=== PATIENT | female | born 1970 | race Caucasian/White ===

== ENCOUNTER 2020-03-14 20:41 | Emergency (ER) | payer OTHER, SELFPAY ==
[2020-03-14 20:42] VITALS: BP 139/83; PULSE 110; RESP 10; TEMP 36.6; O2SAT 100; BMI 32.8
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
[2020-03-14] MEDS: 0.9% Normal Saline 1,000 ML 1000 ML IV (21:20)
[2020-03-14 21:25] LABS: Absolute Lymphocyte Count 3.13 X10^3/uL (0.83-4.51); Absolute Neutrophil Count 6.1 X10^3/uL (2.0-7.7); Basophil# 0.03 X10^3/uL; Basophil% 0.3 % (0-1); Eosinophil# 0.04 X10^3/uL; Eosinophils% 0.4 % (0-5); Hematocrit 41.5 % (37-47); Hemoglobin 13.4 g/dL (12.0-15.0); Lymphocyte # 3.13 X10^3/ul (4.0); Lymphocyte % 31.6 % (19-41); Mean Corp Hgb Conc 32.3 g/dL (32-36); Mean Corpuscular Volume 86.8 fL (81-99); Mean Platelet Vol. 8.9 fl (6.2-12.0); Monocyte# 0.56 X10^3/uL; Monocyte% 5.7 % (0-10); NRBC Flagged by Analyzer 0 % (0-5); Neutrophil # 6.11 X10^3/uL (2.7-7.7); Neutrophil % 61.7 % (47-70); Platelet Count 370 K/mm3 (150-450); RBC Distribution Width CV 13.4 % (11.6-14.6); RBC Distribution Width SD 42.8 fl (35.1-43.9); Red Blood Count 4.78 M/mm3 (4.2-5.4); White Blood Count 9.9 K/mm3 (4.4-11.0)
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
[2020-03-14 21:50] LABS: ALB/GLOB Ratio 0.9 RATIO (0.9-2.4); AST(SGOT) 17 U/L (15-37); Alanine Aminotransfer ALT/SGPT 23 U/L (13-56); Albumin, Serum 3.9 g/dL (3.2-5.0); Alkaline Phosphatase 61 U/L (45-117); Anion Gap 6 (5-15); BUN 11 mg/dL (7-18); BUN/Creat Ratio 13.7 RATIO (10-20); Calcium,Total 9.1 mg/dL (8.5-10.1); Chloride 105 mmol/L (98-107); EST Glomerular Filtration Rate 81 mL/min (>60); Est Glom Filt Rate - Afr Amer 98 mL/min (>60); Estimated Creatinine Clearance 71.91 ml/min; Globulin 4.5 g/dL (2.2-4.2); Glucose 108 mg/dL (74-106); Potassium 3.3 mmol/L (3.5-5.1); Protein, Total 8.4 g/dL (6.4-8.2); Sodium Level 138 mmol/L (136-145)
[2020-03-14 22:10] LABS: Alcohol, Blood (Medical)-Serum < 3.0 mg/dL
[2020-03-14 22:21] VITALS: BP 139/83; PULSE 87; RESP 16
[2020-03-14 22:30] LABS: Bacteria 0 SEEN /hpf (None Seen); Mucous, Urine 0 SEEN /hpf (<or=2+); White Blood Cells 0 SEEN /hpf (0-5)
[2020-03-14 22:31] LABS: Color, Urine Yellow (Yellow); Glucose, Dipstick Normal (Normal); Ketone-Dipstick Negative (Negative); Leukocyte Esterase-Dipstick Negative /ul (Negative); Nitrite-Dipstick Negative (Negative); Occult Blood-Urine 25 /ul (Negative); Protein-Dipstick Negative (Negative); Specific Gravity, Urine 1.025 (1.002-1.030); Urine Bilirubin Dipstick Negative (Negative); Urine Clarity Sl. Cloudy (Clear); Urine Urobilinogen Normal (Normal)
[2020-03-14 22:40] LABS: Amorphous Sediment 1+ URATE; Internal QC Validated? YES +Cl - CLEAR BKGD; Pregnancy, Urine Negative Negative; Red Blood Cells-Urine 0-5 SEEN /hpf (0-5); Squamous Epithelial Cells - UA 5-10 SEEN /hpf (5-10)
[2020-03-14 22:45] LABS: Amphetamine Urine VISTA NEGATIVE (<1000 ng/mL); Barbiturate Urine VISTA NEGATIVE (< 200 ng/mL); Benzodiazepine Urine VISTA POSITIVE (< 200 ng/mL); Cocaine Urine VISTA NEGATIVE (< 300 ng/mL); Ecstacy Urine VISTA POSITIVE (< 500 ng/mL); Methadone Urine VISTA NEGATIVE (< 300 ng/mL); PCP Urine VISTA NEGATIVE (< 25 ng/mL); THC Urine VISTA NEGATIVE (< 50 ng/mL); Vista UDS pH Range 6
[2020-03-14 23:00] VITALS: BP 131/82; PULSE 74; RESP 16; O2SAT 98
[2020-03-14 23:59] VITALS: BP 116/76; PULSE 86; RESP 16
[2020-03-15 01:05] VITALS: BP 118/91; PULSE 94; RESP 18; O2SAT 95
== END 2020-03-15 01:05 | disposition home or self-care (01) ==
PROVIDERS: Emergency Provider Emergency Medicine
DX: Z04.1 Encounter for examination and observation following transport accident (principal); V46.0XXA Car driver injured in collision with other nonmotor vehicle in nontraffic accident, initial encounter; Y93.I9 Activity, other involving external motion; Y92.411 Interstate highway as the place of occurrence of the external cause; Y99.8 Other external cause status
CPT/HCPCS: 70450; 71045; 80053; 80307; 80320; 81001; 81025; 84484; 85025; 93005; 96360; 99283; 99285; A4216; G0480

== ENCOUNTER 2021-09-06 17:04 | Inpatient (IN) | payer OTHER, SELFPAY ==
[2021-09-06 17:05] VITALS: BP 114/77; PULSE 67; RESP 18; TEMP 36.8; O2SAT 97; BMI 33.3
--- NOTE | 2021-09-06 17:32 | HP.PCM.HOS_ITS ---
HPI - General HPI Narrative MÓNICA YUSUF, is a 50 F with a PMh as outlined who presents via the ED on 09/06/2021 for opiate withdrawal. She used to be on benzodiazepines as prescribed by a pscychiatrist and was weaned off ~ 2 years ago. She started taking benzodiazepines again a few months ago and says she purchases it off the street s. She also uses percocets nad IV heroin that she buys off the street. her last use was on the morning of admission. On admission, vitals were blood pressure of 114/77, pulse rate of 67 and respira tory rate of 18. Temperature was 98.2 Fahrenheit and she was saturating 97% on room air. Labs were pending at time of review. She has been admitted to manage for acute opiate and benzodiazepine withdrawal. [facility] Medical History Anxiety Depression PTSD (post-traumatic stress disorder) Home Medications trazodone 300 - 400 mg PO QHS PRN 09/06/21 [History Last Taken Unknown] Allergy/AdvReac Type Severity Reaction Status Date / Time No Known Allergies Allergy Verified 09/06/21 17:04 Surgical History History of kidney surgery Social History Smoking Status: Never smoker ROS Constitutional Constitutional: Denies anorexia, fatigue, fever(s), malaise or weakness Eyes Eyes: Denies change in vision ENT HEENT: Denies dysphagia or headache(s) Cardiovascular Cardiovascular: Denies chest pain, dyspnea on exertion, edema, lightheadedness, orthopnea or palpitations Respiratory/Chest Respiratory/Chest: Denies cough, dyspnea, productive cough, shortness of breath at rest, shortness of breath with exertion or wheezing Gastrointestinal Gastrointestinal: Denies abdominal pain, diarrhea, dyspepsia, hematemesis, nausea or vomiting Genitourinary Genitourinary: Denies dysuria Musculoskeletal Musculoskeletal: Denies arthralgias Neurologic Neurologic: Denies confusion, dizziness, focal weakness, headache(s) or seizure- like activity Psychiatric Psychiatric: Denies anxiety or depression Hematologic/Lymphatic Hematologic/Lymphatic: Denies anemia Vital Signs Vital Signs Vital Signs: 09/06/21 17:05 Temperature 98.2 F Temperature Source Temporal Pulse Rate 67 Respiratory Rate 18 Blood Pressure 114/77 Blood Pressure Mean 89 Pulse Ox 97 Oxygen Delivery Method Room Air Weight Weight: 187 lb 13.341 oz Body Mass Index (BMI) 33.3 Physical Exam Const alert and oriented x3 General Appearance: cooperative HEENT normocephalic, head/scalp atraumatic and hearing grossly normal bilaterally Eyes PERRL, EOMs intact bilaterally and conjunctivae normal Neck no lymphadenopathy, supple and no JVD Resp normal respiratory effort, no retractions, no use of accessory muscles and clear to auscultation bilaterally Cardio regular rate, regular rhythm, S1 normal heart sound, S2 normal heart sound and no murmurs GI normal to inspection, nondistended, normoactive bowel sounds, soft to palpation, non-tender and non-distended Extremity normal to inspection, full ROM and no clubbing, cyanosis or edema Peripheral Pulses: Yes pulses 2+ throughout Skin no rashes or lesions noted Neuro oriented x3, CN's II-XII intact bilaterally and moves all extremities Sensorium / Orientation: awake and alert Psych affect normal Results Lab / Micro Data Result Diagrams: 09/06/21 17:43 09/06/21 17:43 Assessment & Plan Assessment/Plan (1) Opioid withdrawal: (2) Benzodiazepine withdrawal: PLAN: #Acute opioid withdrawal * admit to med surg * urine tox pending * start on opioiod withdrawal protocol with buprenorphine * adjunctive meds for symptomatic relief * #Benzodiazepine withdrawal * start on benzodiazepine withdrawal with ativan * adjunctive meds for symptomatic relief * will need follow up at Outpatient detox rehab facility for continuous tapering of benzodiazepine * DVT prophylaxis: low ris. Encourage ambulation Charges/Coding Visit Charges Inpatient E&M: 22858 Init Hosp L3
--- NOTE | 2021-09-06 17:41 | EDS_ITS ---
HPI History of Present Illness Chief Complaint: Substance Abuse Narrative Narrative: Patient presents for detox from opiates and benzodiazepines. She states she is to see a psychiatrist and take 1 mg of Xanax 4 times a day. 2-1/2 years ago she went through rehab in [place] and got off all medications. She states that for the past few months she has been taking daily Xanax that she gets off the streets. Additionally she will take opiate medication. She states when she tries to stop taking them she gets sick with nausea and vomiting and does not feel well. She last used Xanax/benzodiazepines and opiates this morning. She denies any nausea or vomiting currently. She has had uterine ablation previously and does not have menstrual periods. She denies any suicidal ideation. She presents for detox from these substances. [facility] Medical History (Updated 09/06/21 @ 19:36 by Lin Alex) Anxiety Depression PTSD (post-traumatic stress disorder) Substance abuse Home Medications trazodone 300 - 400 mg PO QHS PRN 09/06/21 [History Last Taken Unknown] Allergy/AdvReac Type Severity Reaction Status Date / Time No Known Allergies Allergy Verified 09/06/21 17:04 Surgical History History of kidney surgery Social History Smoking Status: Never smoker ROS ROS ED ROS Narrative Constitutional: No fever, no chills. HEENT: No sore throat. No neck pain. No loss of vision. No rhinorrhea. Cardiovascular: No chest pain. No palpitations. No pedal edema. Respiratory: No cough, no shortness of breath. Abdominal: No abdominal pain. No nausea or vomiting currently. Genitourinary: No dysuria. No hematuria. Musculoskeletal: No myalgias. No arthralgias. Neurologic: No headaches. No dizziness. No lightheadedness. Skin: No rash. No change in color. Psychiatric: No depression. Mild anxiety. No suicidal ideation. EXAM Physical Exam Narrative Exam Narrative: Afebrile. Vital signs noted. HEENT: Normocephalic. Atraumatic. PERRL, EOMI. Neck soft and supple. No point tenderness or step off. Cardiovascular: Regular rate and rhythm. No murmurs, rubs, or gallops appreciated. Respiratory: No tachypnea. Lungs clear to auscultation bilaterally. Gastrointestinal: Abdomen soft, nontender, with normoactive bowel sounds. No rebound or guarding. Neurological: Awake. Alert. Nonfocal, nonlateralizing. No active signs of withdrawal. Skin: No rash. Normal color. No pallor. Musculoskeletal: No pedal edema. Full range of motion extremities. Const Vital Signs: 09/06/21 17:05 Temperature 98.2 F Temperature Source Temporal Pulse Rate 67 Respiratory Rate 18 Blood Pressure 114/77 Blood Pressure Mean 89 Pulse Ox 97 Oxygen Delivery Method Room Air MDM MDM MDM Narrative Medical decision making narrative: Medical screening labs were obtained. I did obtain a serum , but she has had a uterine ablation in the past. I discussed patient with Dr. Cantu for admission to [facility]. She will be admitted in stable condition. Discharge Plan Dx/Rx/DC Orders Clinical Impression: Opioid withdrawal, Benzodiazepine withdrawal, Desire for detoxification Disposition Disposition: Acute Care Hospital [facility] Discharge Date/Time: 09/06/21 18:34
[2021-09-06 17:50] LABS: Absolute Lymphocyte Count 3.46 X10^3/uL (0.83-4.51); Absolute Neutrophil Count 5.8 X10^3/uL (2.0-7.7); Basophil# 0.02 X10^3/uL; Basophil% 0.2 % (0-1); Eosinophil# 0.13 X10^3/uL; Eosinophils% 1.3 % (0-5); Hematocrit 40.3 % (37-47); Hemoglobin 13.1 g/dL (12.0-15.0); Lymphocyte # 3.46 X10^3/ul (0.83-4.51); Lymphocyte % 34.4 % (19-41); Mean Corp Hgb Conc 32.5 g/dL (32-36); Mean Corpuscular Hgb 29.3 pg (27.0-32.0); Mean Corpuscular Volume 90.2 fL (81-99); Mean Platelet Vol. 9.2 fl (6.2-12.0); Monocyte# 0.66 X10^3/uL; Monocyte% 6.6 % (0-10); NRBC Flagged by Analyzer 0 % (0-5); Neutrophil # 5.76 X10^3/uL (2.7-7.7); Neutrophil % 57.1 % (47-70); Platelet Count 305 K/mm3 (150-450); RBC Distribution Width CV 13.2 % (11.6-14.6); RBC Distribution Width SD 43.5 fl (35.1-43.9); Red Blood Count 4.47 M/mm3 (4.2-5.4); White Blood Count 10.1 K/mm3 (4.4-11.0)
[2021-09-06 18:04] LABS: Anion Gap 3 (5-15); BUN 10 mg/dL (7-18); BUN/Creat Ratio 13.4 RATIO (10-20); Calcium,Total 9.1 mg/dL (8.5-10.1); Chloride 107 mmol/L (98-107); Creatinine, Serum 0.75 mg/dL (0.55-1.02); EST Glomerular Filtration Rate 88 mL/min (>60); Est Glom Filt Rate - Afr Amer 106 mL/min (>60); Estimated Creatinine Clearance 75.88 ml/min; Glucose 87 mg/dL (74-106); Potassium 3.9 mmol/L (3.5-5.1); Sodium Level 141 mmol/L (136-145)
[2021-09-06 18:08] LABS: Internal QC Validated? YES +Cl - CLEAR BKGD; Pregnancy, Serum, hCG Quali. NEGATIVE Negative
[2021-09-06 18:24] LABS: Alcohol, Blood (Medical)-Serum < 3.0 mg/dL
[2021-09-06 18:25] VITALS: BP 122/80; PULSE 70; RESP 17; TEMP 36.7; O2SAT 97
--- NOTE | 2021-09-06 18:29 | CM.ED ---
Social Work Telephone call to treatment navigatorLatrice updated on patient admission to [facility]. Bhakti RIOS, ROXANNE-Rohan
[2021-09-06 18:30] VITALS: BP 116/66; PULSE 69; RESP 16; TEMP 37.2; O2SAT 99
[2021-09-06 18:34] VITALS: BMI 31.8
[2021-09-06] MEDS: Phenobarbital 32.4 MG Tablet 64.8 MG PO ×2 (18:56→22:41)
[2021-09-06 19:08] LABS: Amphetamine Urine VISTA NEGATIVE (<1000 ng/mL); Barbiturate Urine VISTA NEGATIVE (< 200 ng/mL); Benzodiazepine Urine VISTA NEGATIVE (< 200 ng/mL); Cocaine Urine VISTA NEGATIVE (< 300 ng/mL); Ecstacy Urine VISTA POSITIVE (< 500 ng/mL); Methadone Urine VISTA NEGATIVE (< 300 ng/mL); PCP Urine VISTA NEGATIVE (< 25 ng/mL); THC Urine VISTA NEGATIVE (< 50 ng/mL); Vista UDS pH Range 7
[2021-09-06 22:30] VITALS: BP 117/67; PULSE 78; RESP 16; TEMP 36.5; O2SAT 96
[2021-09-06] MEDS: traZODone 100 MG Tablet PO (22:42)
[2021-09-06] MEDS: Dicyclomine 10 MG Capsule 20 MG PO (22:42)
[2021-09-07] MEDS: Phenobarbital 32.4 MG Tablet 64.8 MG PO ×6 (02:48→22:42)
[2021-09-07 03:06] VITALS: BP 105/75; PULSE 75; RESP 16; TEMP 36.6; O2SAT 95
[2021-09-07] MEDS: Dicyclomine 10 MG Capsule 20 MG PO ×2 (06:10→19:52)
[2021-09-07] MEDS: cloNIDine HCl 0.1 MG Tablet PO ×2 (06:10→14:51)
[2021-09-07] MEDS: Thiamine Hydrochloride 100 MG Tablet PO (08:26)
[2021-09-07] MEDS: Folic Acid 1 MG Tablet PO (08:26)
[2021-09-07 09:00] VITALS: BP 101/64; PULSE 79; RESP 16; TEMP 36.6; O2SAT 96
--- NOTE | 2021-09-07 09:34 | PN.HOSP_ITS ---
Subjective Subjective Patient seen in the clinic. She complained of tremors in her legs and says she was not able to sleep. She however had no other complaints. Review of systems otherwise negative. Objective Data Objective Data Vital Signs: Vital Signs Temp Pulse Resp BP Pulse Ox 97.9 F 79 16 101/64 96 09/07/21 09:00 09/07/21 09:00 09/07/21 09:00 09/07/21 09:00 09/07/21 09:00 Oxygen Delivery Method Room Air Weight: 180 lb Body Mass Index (BMI) 31.8 Lab / Micro Data Result Diagrams: 09/06/21 17:43 09/06/21 17:43 Labs: Laboratory Results - last 24 hr 09/06/21 17:43: WBC 10.1, RBC 4.47, Hgb 13.1, Hct 40.3, MCV 90.2, MCH 29.3, MCHC 32.5, RDW Std Deviation 43.5, RDW Coeff of Dean 13.2, Plt Count 305, MPV 9.2, Immature Gran % (Auto) 0.400, Neut % (Auto) 57.1, Lymph % (Auto) 34.4, [place] % (Auto) 6.6, Eos % (Auto) 1.3, Baso % (Auto) 0.2, Absolute Neuts (auto) 5.8, Absolute Lymphs (auto) 3.46, Nucleated RBC % 0 09/06/21 17:43: Sodium 141, Potassium 3.9, Chloride 107, Carbon Dioxide 31.0, Anion Gap 3 L, BUN 10, Creatinine 0.75, Estim Creat Clear Calc 75.88, Est GFR (MDRD) Af Amer 106, Est GFR (MDRD) Non-Af 88, BUN/Creatinine Ratio 13.4, Glucose 87, Calcium 9.1 09/06/21 17:43: Ethyl Alcohol < 3.0 09/06/21 17:43: Serum , Qual NEGATIVE 09/06/21 18:15: Urine Opiates Screen POSITIVE H, Urine Methadone Screen NEGATIVE, Ur Barbiturates Screen NEGATIVE, Ur Phencyclidine Scrn NEGATIVE, Ur Amphetamines Screen NEGATIVE, MDMA (Ecstasy) Screen POSITIVE H, U Benzodiazepines Scrn NEGATIVE, Urine Cocaine Screen NEGATIVE, U Cannabinoids Screen NEGATIVE, Ur Drug Screen Comment Micro: Microbiology 09/06/21 17:35 Nasal Secretion SARS-CoV-2 Antigen (Rapid) - Final Physical Exam Const alert, oriented x3 and no apparent distress General Appearance: cooperative Exam Limitations: no limitations HEENT normocephalic, head/scalp atraumatic, hearing grossly normal bilaterally and moist oral mucous membranes Head and Scalp: normocephalic Eyes PERRL, EOMs intact bilaterally and conjunctivae normal Neck no lymphadenopathy, supple and no JVD Resp normal respiratory effort, no retractions, no use of accessory muscles and clear to auscultation bilaterally Cardio regular rate, regular rhythm, S1 normal heart sound, S2 normal heart sound and no murmurs GI normal to inspection, nondistended, normoactive bowel sounds, soft to palpation, non-tender and non-distended Extremity normal to inspection, full ROM and no clubbing, cyanosis or edema Peripheral Pulses: Yes pulses 2+ throughout Skin no rashes or lesions noted Neuro oriented x3, CN's II-XII intact bilaterally and moves all extremities Sensorium / Orientation: awake and alert Psych affect normal Assessment & Plan Assessment/Plan (1) Opioid withdrawal: (2) Benzodiazepine withdrawal: PLAN: #Acute opioid withdrawal * on opioid withdrawal protocol with buprenorphine * adjunctive meds for symptomatic relief * #Benzodiazepine withdrawal * start on benzodiazepine withdrawal with phenobarbital * adjunctive meds for symptomatic relief DVT prophylaxis: low risk. Encourage ambulation Charges/Coding Visit Charges Inpatient E&M: 70442 Subs Hosp L2
[2021-09-07] MEDS: Buprenorphine HCl 2 MG TAB.SUBL SL ×2 (09:43→17:57)
[2021-09-07] MEDS: Gabapentin 300 MG Capsule PO ×2 (11:10→19:52)
[2021-09-07] MEDS: hydrOXYzine PAM 25 MG Capsule 50 MG PO ×3 (11:12→22:43)
[2021-09-07 14:00] VITALS: BP 118/60; PULSE 92; RESP 16; TEMP 36.7; O2SAT 96
[2021-09-07] MEDS: Methocarbamol 750 MG Tablet 1500 MG PO ×2 (14:46→22:43)
[2021-09-07] MEDS: Acetaminophen 325 MG Tablet 650 MG PO (19:52)
[2021-09-07] MEDS: Ondansetron 8 MG Tablet PO (19:52)
[2021-09-07] MEDS: Pramipexole Di-HCl 0.5 MG Tablet PO (20:30)
[2021-09-07 22:30] VITALS: BP 105/88; PULSE 77; RESP 16; TEMP 36.5; O2SAT 97
[2021-09-07] MEDS: traZODone 100 MG Tablet PO (22:43)
[2021-09-08 02:15] VITALS: BP 110/71; PULSE 76; RESP 16; TEMP 36.1; O2SAT 97
[2021-09-08] MEDS: Buprenorphine HCl 2 MG TAB.SUBL SL ×3 (02:18→16:53)
[2021-09-08] MEDS: Phenobarbital 32.4 MG Tablet 64.8 MG PO ×6 (02:18→21:43)
[2021-09-08] MEDS: Methocarbamol 750 MG Tablet 1500 MG PO (05:58)
[2021-09-08] MEDS: Dicyclomine 10 MG Capsule 20 MG PO ×2 (05:58→16:56)
[2021-09-08] MEDS: hydrOXYzine PAM 25 MG Capsule 50 MG PO ×2 (05:58→20:41)
[2021-09-08 07:31] VITALS: BP 104/69; PULSE 79; RESP 16; TEMP 36.7; O2SAT 97
[2021-09-08] MEDS: Folic Acid 1 MG Tablet PO (07:39)
[2021-09-08] MEDS: Thiamine Hydrochloride 100 MG Tablet PO (07:39)
[2021-09-08] MEDS: cloNIDine HCl 0.1 MG Tablet PO (10:10)
--- NOTE | 2021-09-08 12:04 | PN.HOSP_ITS ---
Subjective Subjective Indicates she is having some pretty significant restless leg syndrome in association with her withdrawal. She states she is having some intermittent abdominal cramping. She states whenever she took last night to help with her restless leg improved her symptoms for the time being but that her symptoms are worse this morning. She is overall improving. She does states she has a significant history of anxiety and depression and it sounds like she is using opiates and benzodiazepines to self medicate with regards to her depression anxiety. She indicates the trazodone she had been on at home was not helping he r sleep and that she is tried multiple medications for depression all of which have thus far been unsuccessful. She states she did have a psychiatrist but after her last admission for drug detox 4 years ago that he fired her from his practice. She has not followed up with psychiatry or psychology since. We did discuss the importance of continued psychiatric help and counseling and maintaining sobriety. Objective Data Objective Data Vital Signs: Vital Signs Temp Pulse Resp BP Pulse Ox 98.0 F 79 16 104/69 97 09/08/21 07:31 09/08/21 07:31 09/08/21 07:31 09/08/21 07:31 09/08/21 07:31 Oxygen Delivery Method Room Air Weight: 81.647 kg Body Mass Index (BMI) 31.8 Lab / Micro Data Result Diagrams: 09/06/21 17:43 09/06/21 17:43 Micro: Microbiology 09/06/21 17:35 Nasal Secretion SARS-CoV-2 Antigen (Rapid) - Final Physical Exam Const alert and oriented x3 Constitutional Narrative: Middle-aged obese, white female lying in bed, appears anxious but nontoxic, very fidgety throughout my interview and exam Exam Limitations: no limitations Nutritional Appearance: obese HEENT head/scalp atraumatic and moist oral mucous membranes HEENT Narrative: Mallampati is 2 Head and Scalp: normocephalic Resp normal respiratory effort, no retractions, no use of accessory muscles and clear to auscultation bilaterally Auscultation: Negative for crackles, rales, rhonchi or wheezes Cardio regular rate, regular rhythm, S1 normal heart sound, S2 normal heart sound, no murmurs, no rub, no gallops, no clicks and no JVD GI normal to inspection, nondistended, normoactive bowel sounds, soft to palpation, non-tender and non-distended Extremity no clubbing, cyanosis or edema Peripheral Pulses: Yes pulses 2+ throughout Neuro oriented x3, CN's II-XII intact bilaterally, moves all extremities and no focal motor deficits Sensorium / Orientation: awake and alert Speech: speech normal Psych Psych Narrative: Affect is flat Mood & Affect: anxious Assessment & Plan Assessment/Plan (1) Opioid withdrawal: (2) Benzodiazepine withdrawal: (3) Desire for detoxification: PLAN: Acute opiate withdrawal -Continue buprenorphine taper -Continue supportive medications -Consider naloxone for discharge to assist in her maintaining sobriety if she is not admitted to an inpatient unit -Recommend follow-up with psychiatry/psychology for counseling and medications for assisting her with her depression and anxiety -Check hepatitis and HIV if not already been done -Await 180 input -Tox screen was positive for opiates and MDMA but not benzodiazepine -Anticipate discharge in probably 48 hours depending on patient's clinical status Acute benzodiazepine withdrawal -Continue phenobarbital taper -Continue supportive medications -Consider gabapentin at discharge and assisting with maintenance of sobriety Depression/anxiety -Per conversation patient's been on multiple antidepressants previously -Patient indicates trazodone 300 to 400 mg at at bedtime is not helpful with sleep -Trial 50 mg of Seroquel at at bedtime and reevaluate tomorrow DVT prophylaxis -Low risk -Early ambulation protocol CODE STATUS -Full code Charges/Coding Visit Charges Inpatient E&M: 73346 Subs Hosp L2
--- NOTE | 2021-09-08 12:09 | ADDICTION ---
This travel writer met with PT to conduct ASAM, MSE, AUDIT, DUDIT assessments and to plan for d/c. PT A+Ox4 and participated actively. All assessments completed and placed in PT's chart. PT plans to f/u with follow-up treatment services, however she wanted to discuss it with her family upon d/c. This worker offered resources based on her listed wants and needs. PT did not indicate a need for transportation post d/c from [facility].
[2021-09-08 13:27] LABS: HIV - WCH Non-Reactive (Nonreactive); Hepatitis B Surface Antibody Reactive; Hepatitis B Surface Antigen Non-Reactive (Nonreactive); Hepatitis C Antibody Non-Reactive (Nonreactive)
[2021-09-08] MEDS: Ondansetron 8 MG Tablet PO (14:59)
[2021-09-08] MEDS: Acetaminophen 325 MG Tablet 650 MG PO (15:03)
[2021-09-08 20:28] VITALS: BP 98/54; PULSE 78; RESP 16; TEMP 36.6; O2SAT 100
[2021-09-08] MEDS: Gabapentin 300 MG Capsule PO (20:41)
[2021-09-08] MEDS: QUEtiapine 25 MG Tablet 50 MG PO (21:43)
[2021-09-09] MEDS: Buprenorphine HCl 2 MG TAB.SUBL SL ×2 (01:37→09:11)
[2021-09-09] MEDS: Phenobarbital 32.4 MG Tablet 64.8 MG PO ×2 (01:37→09:11)
[2021-09-09 02:22] VITALS: BP 95/57; PULSE 78; RESP 16; TEMP 36.6; O2SAT 97
[2021-09-09 08:58] VITALS: BP 116/69; PULSE 85; RESP 16; TEMP 36.6; O2SAT 97
[2021-09-09] MEDS: Thiamine Hydrochloride 100 MG Tablet PO (09:11)
[2021-09-09] MEDS: Folic Acid 1 MG Tablet PO (09:11)
--- NOTE | 2021-09-09 10:46 | ADDICTION ---
This worker followed up with pt to discuss follow up treatment and give pt The Addiction Workbook. She reports that she plans on going in for an assessment at [facility] directly after discharge but was not interested in this worker making an appointment.
--- NOTE | 2021-09-09 10:59 | PCM.DC.SUM ---
Providers Date of Admission: 09/06/21 Date of Discharge: 09/09/21 Primary Care Physician: Dr. Davie Childs MD Reason For Visit: OPIOID AND BENZODIAZEPINE WITHDRAWAL Diagnosis Discharge Diagnosis (1) Opioid withdrawal: Status: Acute Code(s): F11.23 - Opioid dependence with withdrawal (2) Benzodiazepine withdrawal: Status: Acute Code(s): F13.239 - Sedative, hypnotic or anxiolytic dependence with withdrawal, unspecified (3) Desire for detoxification: Status: Acute Medications at Discharge Home Medications gabapentin [Neurontin] 100 mg PO TID #42 cap 09/09/21 gabapentin [Neurontin] 300 mg PO TID #42 cap 09/09/21 quetiapine 50 mg PO QHS #60 tab 09/09/21 Hospital Course Operations None Procedures None Summary of Care Provided Minutes Spent on Discharge: 36 Hospital Course: Mrs. Hess is a 50-year-old white female who presented to emergency department at [facility] on 09/06/2021 for acute opiate withdrawal and acute benzodiazepine withdrawal. She evidently had been weaned off of her benzodiazepines from a psychiatrist previously but started taking benzodiazepine a few months ago of which she purchased off the street. She reported narcotic use in the form of Percocets and IV heroin. The last use prior to admission was the morning of admission. She states she has been using substances since she was 18 years old and did go through one inpatient rehab several years ago but states she had a fairly poor experience. She states she has PTSD and severe anxiety with associated depression. She has insomnia and has been taking 300 to 400 mg of trazodone at night but states it does not help. She was admitted to the medical floor and started on a buprenorphine taper as well as phenobarbital. Serum test was assessed and was negative. Her serum tox screen on admission was positive for opiates and ecstasy but negative for benzodiazepines. Given her history of IV drug use, hepatitis studies were performed and were negative for hep C and positive for hep B antibody. Her HIV was nonreactive. She did well overall with her detox. We discontinued her trazodone and started her on Seroquel 50 mg at at bedtime. She did extremely well with this and stated that it helped her dramatically. We recommended that she follow-up with psychiatry as well as psychology for counseling. She plans on following up as an outpatient in . We discussed extensively that I felt she probably would benefit most from an inpatient admission and have the most success with this however she was adamant that she wanted to go home and try as an outpatient. She was discharged in stable condition on 09/09/2021. She was discharged with a 30-day prescription for Seroquel as well as placed on a gabapentin taper for her benzodiazepine addiction. Given her long history of use she was placed on 300 mg of gabapentin 3 times daily for 2 weeks then 100 mg 3 times daily for 2 weeks. Discharge diagnoses: Acute opiate withdrawal Acute benzodiazepine withdrawal PTSD Depression Anxiety Physical Exam Narrative Patient states she is feeling much better today. Still having some intermittent abdominal cramping however she really would like to go home and follow-up as an outpatient with 180. Const alert, oriented x3 and no apparent distress Constitutional Narrative: Middle-aged obese, white female lying in bed, peers much calmer today with no fidgeting General Appearance: cooperative, comfortable, well kempt and well developed Exam Limitations: no limitations Nutritional Appearance: obese HEENT normocephalic, head/scalp atraumatic, hearing grossly normal bilaterally and moist oral mucous membranes HEENT Narrative: Mallampati is 3, no thrush, dentition is good Eyes PERRL, EOMs intact bilaterally and conjunctivae normal Neck no lymphadenopathy, supple and no JVD Neck Narrative: Trachea midline, no thyroid enlargement Resp normal respiratory effort, no retractions, no use of accessory muscles and clear to auscultation bilaterally Auscultation: Negative for crackles, rales, rhonchi or wheezes Cardio regular rate, regular rhythm, S1 normal heart sound, S2 normal heart sound, no murmurs, no rub, no gallops, no clicks and no JVD GI normal to inspection, nondistended, normoactive bowel sounds, soft to palpation, non-tender and non-distended Extremity normal to inspection, full ROM and no clubbing, cyanosis or edema Skin no rashes or lesions noted, no wounds, skin turgor normal and no jaundice Skin Narrative: Several tattoos Neuro oriented x3, CN's II-XII intact bilaterally, moves all extremities and no focal motor deficits Sensorium / Orientation: awake and alert Speech: speech normal Motor Exam: strength 5/5 throughout Psych Psych Narrative: Patient seems anxious however much improved in the last 24 hours, appropriately interactive, affect is better Mood & Affect: anxious Weight / BMI Weight Weight: 81.647 kg Body Mass Index (BMI) 31.8 ABG / Lab / Microbiology Data Result Diagrams: 09/06/21 17:43 09/06/21 17:43 Laboratory: Laboratory Results - last 24 hr 09/06/21 17:43: Hep Bs Antigen Non-Reactive, Hep Bs Antibody Reactive, Hepatitis C Antibody Non-Reactive, HIV 1&2 Antibody Non-Reactive Microbiology: Microbiology 09/06/21 17:35 Nasal Secretion SARS-CoV-2 Antigen (Rapid) - Final D/C Instructions Discharge Diet: No restrictions Discharge Activity: Return to Normal Activity Return to work on: 09/10/21 Meaningful Use Info Meaningful Use Diagnoses (Choose all that apply): None applicable Discharge Plan Admission Admit Date/Time: 09/06/21 17:39 Primary Reason for Your Visit: Opiate and Benzo Detox Attending Provider: Lyla Rios Primary Care Provider: Davie Childs Discharge Orders/Prescriptions Prescriptions: New quetiapine 25 mg Tablet 50 mg PO QHS Qty: 60 RF: 0 gabapentin [Neurontin] 300 mg Capsule 300 mg PO TID Qty: 42 RF: 0 gabapentin [Neurontin] 100 mg Capsule 100 mg PO TID Qty: 42 RF: 0 Discontinued trazodone 100 mg tablet 300 - 400 mg PO QHS PRN (Reason: Sleep) RF: 0 Other Ambulatory Orders: RAMP - Benzodiazepine Use (Routine) Location: None Selected Ordered By: Dr. Lyla Rios Referrals / Follow Up: Davie Childs MD [Primary Care Provider] - In 1 Week Disposition Disposition (needs filled in before D/C Order can be placed): Home, Self Care Charges/Coding Visit Charges Inpatient E&M: 02172 Disch Hosp
== END 2021-09-09 12:43 | disposition home or self-care (01) | DRG 897 ==
LOC: ED 17:46 → MS3 18:04
PROVIDERS: Admitting Provider Student in an Organized Health Care Education/Training Program; Emergency Provider Emergency Medicine; PCP Family Medicine; Visit Provider Internal Medicine
DX: F11.23 Opioid dependence with withdrawal (principal); F32.A Depression, unspecified; F41.9 Anxiety disorder, unspecified; F43.10 Post-traumatic stress disorder, unspecified
CPT/HCPCS: 80048; 80307; 82077; 84703; 85025; 86703; 86706; 86803; 87340; 87811; 99283

== ENCOUNTER → 2021-11-13 | Outpatient (CLI) | payer OTHER, SELFPAY ==
--- NOTE | 2021-11-13 11:28 | RAD_ITS ---
STUDY: X-RAY - LEFT KNEE REASON FOR EXAM: Female, 50 years old. Chronic bilateral knee pain. TECHNIQUE: 4 view(s) of the knee. COMPARISON: None. FINDINGS: Normal visualized distal femur. Normal visualized proximal tibia and fibula. Normal proximal tibiofibular articulation. Normal medial femorotibial compartment. Normal lateral femorotibial compartment. There is moderate degenerative arthrosis of the patellofemoral articulation. The soft tissue structures are unremarkable. RAD/Knee 4 or More Views IMPRESSION: Degenerative arthrosis. Electronically Signed: Sandro Monahan MD at 12:57 EDT ,
--- NOTE | 2021-11-13 11:28 | RAD_ITS ---
STUDY: X-RAY - RIGHT KNEE REASON FOR EXAM: Female, 50 years old. PAIN TECHNIQUE: 4 view(s) of the knee. COMPARISON: None. FINDINGS: Normal visualized distal femur. Normal visualized proximal tibia and fibula. Normal proximal tibiofibular articulation. Normal medial femorotibial compartment. Normal lateral femorotibial compartment. There is mild degenerative arthrosis of the patellofemoral articulation. Tiny joint effusion. RAD/Knee 4 or More Views IMPRESSION: Degenerative arthrosis. Tiny joint effusion. Electronically Signed: Sandro Monahan MD at 12:57 EDT ,
--- NOTE | 2021-11-13 11:29 | RAD_ITS ---
STUDY: X-RAY - LUMBAR SPINE REASON FOR EXAM: Female, 50 years old. Chronic low back pain. TECHNIQUE: 5 view(s) of the lumbar spine were obtained including oblique views. COMPARISON: None FINDINGS: Normal lumbar lordosis. There is no substantial scoliosis. There is a normal alignment of the vertebrae. There is multilevel endplate spondylosis of the lumbar vertebrae. There is multi-level degenerative disc disease with multi-level disc space narrowing. Surgical clips are seen in the left upper quadrant. Large amount of fecal material is seen in the colon. RAD/L/S Spine Min 4 Views IMPRESSION: Degenerative changes of the spine, as detailed above. Large amount of fecal material is seen in the colon. Electronically Signed: Sandro Monahan MD at 12:58 EDT ,
== END | disposition home or self-care (01) ==
LOC: RAD 11:27
PROVIDERS: PCP Family Medicine
DX: M25.561 Pain in right knee (principal); M25.562 Pain in left knee; M54.9 Dorsalgia, unspecified
CPT/HCPCS: 72110; 73564